=== PATIENT | female | born 1935 | race Caucasian/White ===

== ENCOUNTER 2020-06-24 23:58 | Inpatient (IN) | payer MEDICARE ==
[~2020-06-24] VITALS: Ht 152.4 cm; Wt 41.7 kg
[2020-06-25 01:40] LABS: Albumin 3.8 g/dL (3.4-5.0); Anion Gap 6 (5-15); BUN/Creatinine Ratio 24.5; Blood Urea Nitrogen 13 mg/dL (7-18); Calcium 8.7 mg/dL (8.5-10.1); Carbon Dioxide 27 mmol/L (21-32); Chloride 101 mmol/L (98-107); GFR African American 140 mL/min; GFR Non-African American 116 mL/min; Glucose 93 mg/dL (74-106); Potassium 3.9 mmol/L (3.5-5.1); Sodium 134 mmol/L (136-145)
[2020-06-25 01:45] LABS: Alanine Aminotransferase 122 U/L (13-56); Alkaline Phosphatase 146 U/L (45-117); Aspartate Aminotransferase 103 U/L (15-37); Bilirubin, Total 0.4 mg/dL (0.2-1.0); INR 0.97 (0.9-1.15); Partial Thromboplastin Time 28.6 sec (23.0-31.2); Total Protein 7.4 g/dL (6.4-8.2)
[2020-06-25 01:50] LABS: Basophils # (auto) 0.1 10 ^3/uL (0-0.2); Basophils % (auto) 1.1 % (0.0-2.0); Eosinophils # (auto) 0.5 10 ^3/uL (0-0.8); Eosinophils % (auto) 7.5 % (0.0-7.0); Hematocrit 40.3 % (36.0-46.0); Hemoglobin 13.9 g/dL (12.2-16.2); Lymphocytes # (auto) 1.8 10 ^3/uL (0.4-5.4); Lymphocytes % (auto) 27.9 % (10.0-50.0); Mean Corpuscular Hemoglobin 33.2 pg (28.0-32.0); Mean Corpuscular Hgb Conc. 34.6 g/dL (32.0-36.0); Mean Corpuscular Volume 96.1 fL (80.0-100.0); Monocytes # (auto) 0.7 10 ^3/uL (0-1.3); Monocytes % (auto) 10.6 % (0.0-12.0); Neutrophils # (auto) 3.4 10 ^3/uL (1.6-8.6); Neutrophils % (auto) 52.9 % (37.0-80.0); Nucleated Red Blood Cells % 0.1 %; Platelet Count (auto) 358 10^3/uL (140-450); Red Blood Cells 4.19 10^6/uL (4.0-5.20); White Blood Cell 6.4 10^3/uL (4.4-10.8)
[2020-06-25 05:14] LABS: Urine Amorphous Crystal FEW /hpf (None Seen); Urine Bacteria NONE SEEN /hpf (None Seen); Urine Blood Negative /uL (Negative); Urine Specific Gravity 1.011 (1.001-1.035); Urine WBC <1 /hpf (0 - 5)
[2020-06-25] MEDS ORDERED: NITROGLYCERIN 0.4 MG SL TAB SL PRN ×3 (09:45→15:30)
[2020-06-25] MEDS ORDERED: MORPHINE SULF INJ 2 MG/ML SYRINGE 1ML IV PRN ×2 (09:45→15:30)
[2020-06-25] MEDS ORDERED: IPRATROPIUM BROM 0.5 MG/2.5ML INH SOL NEB ONE (10:45)
[2020-06-25] MEDS ORDERED: ALPRAZolam 0.5 MG TAB PO ONE (10:45)
[2020-06-25] MEDS ORDERED: UMEC1AER IN (10:46)
[2020-06-25] MEDS ORDERED: ALPR0.5T8 PO (10:46)
[2020-06-25] MEDS ORDERED: POTA1TAB64 PO (10:46)
[2020-06-25] MEDS ORDERED: AMLO-496 PO (10:46)
[2020-06-25] MEDS ORDERED: ALBUAER3 IN (10:46)
[2020-06-25] MEDS ORDERED: [UNRECOGNIZED DRUG - CODE] PO (10:47)
[2020-06-25] MEDS ORDERED: AZITHROMYCIN 500MG/ 250ML 250 ML IV ONE (11:00)
[2020-06-25] MEDS ORDERED: ALPRAZolam 0.5 MG TAB PO PRN (11:00)
[2020-06-25] MEDS ORDERED: ALBUTEROL SULF 2.5 MG/0.5ML(0.5%) NEB SOLN NEB ONE (11:00)
[2020-06-25] MEDS ORDERED: methylPREDNISolone SOD SUCC 125 MG/2 ML VL IV ONE (11:00)
[2020-06-25] MEDS ORDERED: ALBUTEROL SULF 2.5 MG/0.5ML(0.5%) NEB SOLN NEB PRN (11:00)
[2020-06-25] MEDS ORDERED: Ensure Enlive Chocolate 8oz Bottle PO SCH (12:00)
[2020-06-25 14:00] VITALS: BP 141/63
[2020-06-25] MEDS ORDERED: methylPREDNISolone SOD SUCC 40 MG/ML VL IV SCH (14:00)
[2020-06-25] MEDS ORDERED: IPRATROPIUM BROM 0.5 MG/2.5ML INH SOL NEB SCH (14:00)
[2020-06-25] MEDS ORDERED: ALUM & MAG HYDROX-SIMETH LIQ(MAALOX) 30 ML PO PRN (15:30)
[2020-06-25] MEDS ORDERED: HYDROcodone-ACET 5/325MG TAB PO PRN (15:30)
[2020-06-25] MEDS ORDERED: ONDANSETRON HCL 4 MG/2 ML VIAL IV PRN (15:30)
[2020-06-25] MEDS ORDERED: SODIUM CHLORIDE 0.9% 1,000 ML IV SCH (15:30)
[2020-06-25] MEDS ORDERED: NIFEdipine ER 30 MG TAB PO ONE (15:30)
[2020-06-25] MEDS ORDERED: DOCUSATE SOD 100 MG CAP PO PRN (15:30)
[2020-06-25] MEDS ORDERED: ACETAMINOPHEN 325 MG TAB PO PRN (15:30)
[2020-06-25 17:48] LABS: Alcohol, Urine < 3.0 mg/dL (0-10); Amphetamine Screen, Urine NEGATIVE (NEGATIVE); Barbiturate Scree,Urine NEGATIVE (NEGATIVE); Benzodiazephine Screen, Urine POSITIVE (NEGATIVE); Cannabinoid Screen, Urine NEGATIVE (NEGATIVE); Cocaine Screen, Urine NEGATIVE (NEGATIVE); Opiate Scree,Urine NEGATIVE (NEGATIVE); Phencyclidine Screen, Urine NEGATIVE (NEGATIVE)
[2020-06-25] MEDS ORDERED: ATORVASTATIN 20 MG TAB PO SCH (22:00)
[2020-06-25] MEDS ORDERED: CARVEDILOL 3.125 MG TAB PO SCH (22:00)
[2020-06-25] MEDS ORDERED: FAMOTIDINE (10MG/ML) 2ML VL IV SCH (22:00)
[2020-06-25] MEDS ORDERED: GABAPENTIN 100 MG CAP PO SCH ×2 (22:00)
[2020-06-26] MEDS ORDERED: ASPirin 81 mg TAB PO SCH (10:00)
[2020-06-26] MEDS ORDERED: LISINOPRIL 5 MG TAB PO SCH (10:00)
[2020-06-26] MEDS ORDERED: NIFEdipine ER 30 MG TAB PO SCH (10:00)
[2020-06-26] MEDS ORDERED: AZITHROMYCIN 500MG/ 250ML 250 ML IV SCH (10:00)
[2020-06-26] MEDS ORDERED: ENOXAPARIN SOD 30 MG/0.3 ML SYRINGE SC SCH (10:00)
[2020-06-28 13:52] LABS: Hepatitis A Ab IgM Negative; Hepatitis B Core IgM Negative; Hepatitis B Surface Antigen Negative (Negative); Hepatitis C Antibody Negative (Negative)
== END 2020-06-25 16:07 | disposition home or self-care (01) | DRG 189 ==
LOC: ER 23:58 → EDBD 23:58 → TELE 23:59
PROVIDERS: ADMIT Hospitalist; ATTEND Hospitalist
DX: J96.20 Acute and chronic respiratory failure, unspecified whether with hypoxia or hypercapnia (principal); B17.9 Acute viral hepatitis, unspecified; E87.1 Hypo-osmolality and hyponatremia; R64 Cachexia; J44.1 Chronic obstructive pulmonary disease with (acute) exacerbation; J44.0 Chronic obstructive pulmonary disease with (acute) lower respiratory infection; R07.89 Other chest pain; J20.9 Acute bronchitis, unspecified; F41.9 Anxiety disorder, unspecified; I10 Essential (primary) hypertension; K72.90 Hepatic failure, unspecified without coma; K80.20 Calculus of gallbladder without cholecystitis without obstruction; Z87.891 Personal history of nicotine dependence; Z91.81 History of falling; Z88.5 Allergy status to narcotic agent
CPT/HCPCS: 36415; 71045; 74176; 80053; 80074; 80307; 81001; 83036; 83880; 84484; 85025; 85610; 85730; 87086; 93005; 94640; G0378

== ENCOUNTER 2022-07-15 06:11 | Inpatient (IN) | payer MEDICARE ==
[~2022-07-15] VITALS: Ht 152.4 cm; Wt 41.5 kg
[~2022-07-15 06:11] MED LIST: ALBUAER3 IN; ALPR0.5T8 PO; AMLO-496 PO; POTA1TAB64 PO; UMEC1AER IN; [UNRECOGNIZED DRUG - CODE] PO
[2022-07-15] MEDS ORDERED: MORPHINE SULFATE 4 MG/ML SYR/VIAL IV ONE (09:30)
[2022-07-15] MEDS ORDERED: ONDANSETRON HCL 4 MG/2 ML VIAL IV STA (10:13)
[2022-07-15 11:30] LABS: Basophils # (auto) 0 10 ^3/uL (0-0.2); Basophils % (auto) 0.6 % (0.0-2.0); Eosinophils # (auto) 0.1 10 ^3/uL (0-0.8); Eosinophils % (auto) 1.1 % (0.0-7.0); Hematocrit 39.2 % (36.0-46.0); Hemoglobin 12.7 g/dL (12.2-16.2); Lymphocytes # (auto) 0.5 10 ^3/uL (0.4-5.4); Lymphocytes % (auto) 5.6 % (10.0-50.0); Mean Corpuscular Hemoglobin 31.1 pg (28.0-32.0); Mean Corpuscular Hgb Conc. 32.5 g/dL (32.0-36.0); Mean Corpuscular Volume 95.8 fL (80.0-100.0); Monocytes # (auto) 0.7 10 ^3/uL (0-1.3); Monocytes % (auto) 8.5 % (0.0-12.0); Neutrophils % (auto) 84.2 % (37.0-80.0); Nucleated Red Blood Cells % 0.1 %; Red Blood Cells 4.09 10^6/uL (4.0-5.20); Red Cell Distribution Width 13.5 % (11.8-14.3); White Blood Cell 8.4 10^3/uL (4.4-10.8)
[2022-07-15 11:50] LABS: Albumin 3.4 g/dL (3.4-5.0); Calcium 8.7 mg/dL (8.5-10.1); Potassium 3.9 mmol/L (3.5-5.1)
[2022-07-15 11:55] LABS: BUN/Creatinine Ratio 21.4; Bilirubin, Total 0.6 mg/dL (0.2-1.0); Total Protein 6.6 g/dL (6.4-8.2)
[2022-07-15 11:57] LABS: Urine Bacteria NONE SEEN /hpf (None Seen); Urine Blood Negative /uL (Negative); Urine WBC 1 /hpf (0 - 5)
[2022-07-15] MEDS ORDERED: ACETAMINOPHEN 325 MG TAB PO PRN (17:00)
[2022-07-15] MEDS ORDERED: ONDANSETRON HCL 4 MG/2 ML VIAL IV PRN (17:00)
[2022-07-15] MEDS ORDERED: DOCUSATE SOD 100 MG CAP PO PRN (17:00)
[2022-07-15] MEDS ORDERED: HYDROcodone-ACET 5/325MG TAB PO PRN (17:00)
[2022-07-15] MEDS: PANTOPRAZOLE 40 MG/10 ML VIAL INJ IV SCH (18:51)
[2022-07-15 22:00] VITALS: BP 152/66
[2022-07-15 22:46] VITALS: BP 152/66
[2022-07-15] MEDS ORDERED: ASPI1TAB20 PO (23:01)
[2022-07-16 05:00] VITALS: BP 145/67
[2022-07-16 07:31] LABS: Basophils # (auto) 0 10 ^3/uL (0-0.2); Basophils % (auto) 0.3 % (0.0-2.0); Eosinophils # (auto) 0 10 ^3/uL (0-0.8); Hemoglobin 13.4 g/dL (12.2-16.2); Mean Corpuscular Hemoglobin 31.7 pg (28.0-32.0); Mean Corpuscular Hgb Conc. 33.5 g/dL (32.0-36.0); Mean Corpuscular Volume 94.7 fL (80.0-100.0); Monocytes % (auto) 7.9 % (0.0-12.0); Neutrophils # (auto) 10.5 10 ^3/uL (1.6-8.6); Neutrophils % (auto) 83.8 % (37.0-80.0); Red Blood Cells 4.23 10^6/uL (4.0-5.20); Red Cell Distribution Width 13.3 % (11.8-14.3); White Blood Cell 12.6 10^3/uL (4.4-10.8)
[2022-07-16 07:46] LABS: Calcium 8.6 mg/dL (8.5-10.1); Potassium 3.6 mmol/L (3.5-5.1)
[2022-07-16 09:27] VITALS: BP 145/60
[2022-07-16] MEDS ORDERED: ALBUTEROL SULF 2.5 MG/0.5ML(0.5%) NEB SOLN NEB PRN (10:15)
[2022-07-16] MEDS: PANTOPRAZOLE 40 MG/10 ML VIAL INJ IV SCH (11:23)
[2022-07-16] MEDS: ASPirin 81 mg TAB PO SCH (11:23)
[2022-07-16] MEDS: amLODIPine BESYLATE 5 MG TAB PO SCH (11:24)
[2022-07-16] MEDS: ALPRAZolam 0.5 MG TAB PO PRN (11:46)
[2022-07-16 13:00] VITALS: BP 154/68
[2022-07-16 17:00] VITALS: BP 134/53
[2022-07-16 19:50] VITALS: BP 141/57
[2022-07-16 22:44] VITALS: BP 141/57
[2022-07-17 05:52] VITALS: BP 141/57
[2022-07-17] MEDS: ASPirin 81 mg TAB PO SCH (09:12)
[2022-07-17] MEDS: PANTOPRAZOLE 40 MG/10 ML VIAL INJ IV SCH (09:12)
[2022-07-17] MEDS: amLODIPine BESYLATE 5 MG TAB PO SCH (09:13)
[2022-07-17] MEDS: ALPRAZolam 0.5 MG TAB PO PRN (09:13)
[2022-07-17 09:21] VITALS: BP 146/51
[2022-07-17 12:45] VITALS: BP 146/51
[2022-07-17 13:01] VITALS: BP 133/53
[2022-07-17 17:15] VITALS: BP 138/53
== END 2022-07-17 17:53 | DRG 555 ==
LOC: EDUNIT# 06:11 → EDBD 06:11 → ER 06:11 → OVERFLOW 16:56 → CENTRAL 22:05
PROVIDERS: ADMIT Nurse Practitioner Family; ATTEND Family Medicine
DX: M25.522 Pain in left elbow (principal); J96.00 Acute respiratory failure, unspecified whether with hypoxia or hypercapnia; M85.88 Other specified disorders of bone density and structure, other site; S09.90XA Unspecified injury of head, initial encounter; G89.29 Other chronic pain; J44.9 Chronic obstructive pulmonary disease, unspecified; K59.00 Constipation, unspecified; M25.552 Pain in left hip; W18.39XA Other fall on same level, initial encounter; M85.80 Other specified disorders of bone density and structure, unspecified site; Z87.891 Personal history of nicotine dependence; Y93.89 Activity, other specified; Y92.89 Other specified places as the place of occurrence of the external cause; Y99.8 Other external cause status; M25.562 Pain in left knee
CPT/HCPCS: 36415; 70450; 72125; 72192; 73080; 73562; 80048; 80053; 81001; 85025; 87426; 96374; 96375; 97163; C9113; G0378; J2405